=== PATIENT | male | born 1950 | race Caucasian/White ===

== ENCOUNTER 2019-08-16 06:20 | Emergency (ER) | payer MEDICARE, BC ==
--- NOTE | 2019-08-16 07:41 | EDM.PDOC ---
ED HPI GENERAL MEDICAL PROBLEM - General Chief Complaint: Respiratory Problem Stated Complaint: FLU SYMPTOMS Time Seen by Provider: 08/16/19 07:20 Source of Information: Reports: Patient - History of Present Illness INITIAL COMMENTS - FREE TEXT/NARRATIVE: Patient presents complaining of congestion, intermittent cough, pleuritic nonradiating chest pain present only when coughing, sore throat, decreased energy for the past few days. He says he felt the same way a few years ago, and that at that time, he had influenza B. Denies earaches. Complains of rhinorrhea and generalized body aches also. Denies any history of coronary artery disease, dyslipidemia, or hypertension. Treatments COORDINATOR OF EVALUATION: Reports: Acetaminophen sorethroat Pain Score (Numeric/FACES): 3 - Related Data Allergies Allergy/AdvReac Type Severity Reaction Status Date / Time No Known Allergies Allergy Verified 08/16/19 06:31 Home Meds: Home Meds Oseltamivir [Tamiflu] 75 mg PO BID 5 Days #10 cap 08/16/19 [Rx] Past Medical History HEENT History: Reports: None Cardiovascular History: Reports: None Respiratory History: Reports: None Gastrointestinal History: Reports: None Genitourinary History: Reports: None Musculoskeletal History: Reports: None Neurological History: Reports: None Psychiatric History: Reports: None Endocrine/Metabolic History: Reports: None Insulin Pump Model and History Faculty Member: None Hematologic History: Reports: None Immunologic History: Reports: None Oncologic (Cancer) History: Reports: None Dermatologic History: Reports: None - Infectious Disease History Infectious Disease History: Reports: None - Past Surgical History Head Surgeries/Procedures: Reports: None GI Surgical History: Reports: Hernia, Abdominal Male Surgical History: Reports: None Musculoskeletal Surgical History: Reports: Hip Replacement Social & Family History - Family History Family Medical History: Noncontributory - Tobacco Use Smoking Status *Q: Never Smoker - Caffeine Use Caffeine Use: Reports: Coffee - Recreational Drug Use Recreational Drug Use: No ED ROS GENERAL - Review of Systems Review Of Systems: See Below Constitutional: Reports: Chills, Malaise, Weakness, Fatigue, Night Sweats. Denies: Fever HEENT: Denies: Eye Pain Respiratory: Reports: Pleuritic Chest Pain, Cough. Denies: Shortness of Breath , Wheezing GI/Abdominal: Denies: Abdominal Pain, Nausea, Vomiting Neurological: Denies: Dizziness ED EXAM, GENERAL - Physical Exam Exam: See Below Free Text/Narrative:: General: alert, well appearing, no acute distress HEENT: Atraumatic, normocephalic, pupils reactive, negative for conjunctival pallor or scleral icterus, mucous membranes moist, throat clear, handling oral secretions well. Neck: supple, nontender, trachea midline. Lungs: Clear to auscultation, breath sounds equal bilaterally, chest nontender. Heart: S1S2, regular, negative for clicks, rubs, or JVD. Abdomen: Soft, nondistended, nontender. Skin: warm, dry, good turgor. Musculoskeletal: soft compartments. Extremities: Atraumatic, negative for cords or calf pain. Neurovascular unremarkable. Neuro: Awake, alert, oriented. Cranial nerves II through XII unremarkable. Exam nonfocal. Course - Vital Signs Last Recorded V/S: Last Vital Signs Temp 98.7 F 08/16/19 06:31 Pulse 103 H 08/16/19 06:31 Resp 20 08/16/19 06:31 BP 106/79 08/16/19 06:31 Pulse Ox 95 08/16/19 06:31 - Orders/Labs/Meds Orders: Active Orders 24 hr Category Date Time Status Ready for Discharge [RC] PER UNIT ROUTINE Care 08/16/19 07:46 Active CULTURE STREP A CONFIRMATION [] Stat Lab 08/16/19 06:39 Results STREP SCRN A RAPID W CULT CONF [] Stat Lab 08/16/19 06:39 Results - Re-Assessments/Exams Free Text/Narrative Re-Assessment/Exam: 08/16/19 07:42 Patient is positive for influenza A. I will give him a course of Tamiflu. He is asked to follow-up with his family doctor in about 3 to 5 days. Return here for new, changing, or worsening symptoms. Departure - Departure Time of Disposition: 07:44 Disposition: Home, Self-Care 01 Condition: Good Clinical Impression: Influenza A - Discharge Information Prescriptions: Oseltamivir [Tamiflu] 75 mg PO BID 5 Days #10 cap Instructions: Influenza, Adult, [id number] Referrals: Brock Carrillo MD [Primary Care Provider] - Forms: ED Department Discharge Additional Instructions: The following information is given to patients seen in the emergency department who are being discharged to home. This information is to outline your options for follow-up care. We provide all patients seen in our emergency department with a follow-up referral. The need for follow-up, as well as the timing and circumstances, are variable depending upon the specifics of your emergency department visit. If you don't have a primary care physician on staff, we will provide you with a referral. We always advise you to contact your personal physician following an emergency department visit to inform them of the circumstance of the visit and for follow-up with them and/or the need for any referrals to a consulting specialist. The emergency department will also refer you to a specialist when appropriate. This referral assures that you have the opportunity for follow-up care with a specialist. All of these measure are taken in an effort to provide you with optimal care, which includes your follow-up. Under all circumstances we always encourage you to contact your private physician who remains a resource for coordinating your care. When calling for follow-up care, please make the office aware that this follow-up is from your recent emergency room visit. If for any reason you are refused follow-up, please contact the [facility] at and asked to speak to the emergency department charge nurse. [facility] [address] [place] [address] [id number] Sepsis Event Note - Evaluation Sepsis Screening Result: No Definite Risk - Focused Exam Vital Signs: Vital Signs Temp Pulse Resp BP Pulse Ox 08/16/19 06:31 98.7 F 103 H 20 106/79 95 Date Exam was Performed: 08/16/19 Time Exam was Performed: 18:22 - My Orders Last 24 Hours: My Active Orders 08/16/19 07:46 Ready for Discharge [RC] PER UNIT ROUTINE - Assessment/Plan Last 24 Hours: My Active Orders 08/16/19 07:46 Ready for Discharge [RC] PER UNIT ROUTINE
== END 2019-08-16 08:04 | disposition home or self-care (01) ==
LOC: MW.ED 06:20
DX: J10.1 Influenza due to other identified influenza virus with other respiratory manifestations (principal)
CPT/HCPCS: 87081; 87804; 87880-QW; 99284